=== PATIENT | male | born 1985 | race Caucasian/White ===

== ENCOUNTER 2017-05-28 22:13 | Emergency (ER) | payer OTHER ==
[2017-05-28 22:20] VITALS: BP 141/82
== END 2017-05-28 23:48 | disposition left against medical advice (07) ==
LOC: ED 22:13
DX: G89.29 Other chronic pain (principal); K08.89 Other specified disorders of teeth and supporting structures; F11.10 Opioid abuse, uncomplicated; F17.210 Nicotine dependence, cigarettes, uncomplicated